=== PATIENT | female | born 1990 | race Hispanic/Latino ===

== ENCOUNTER 2021-09-18 09:35 | Inpatient (IN) | payer MEDICAID, OTHER, SELFPAY ==
[2021-09-18] MEDS ORDERED: Bicitra 30 ML UDCUP PO PRN (09:51)
[2021-09-18] MEDS ORDERED: Ondansetron PF 4 MG/2 ML Vial IVP PRN ×3 (09:51→15:39)
[2021-09-18] MEDS ORDERED: hydrALAZINE 20 MG/ML VIAL SLOW IVP PRN ×2 (09:51→15:39)
[2021-09-18] MEDS ORDERED: Famotidine/PF 20 mg/2ml Vial SLOW IVP PRN (09:51)
[2021-09-18] MEDS ORDERED: Promethazine HCl 25 MG/ML VIAL IM PRN ×3 (09:51→15:39)
[2021-09-18] MEDS ORDERED: ceFAZolin 2 GM/Dextrose 50 ML 2 GM in Premix Bag 1 BAG IVPB SCH (09:51)
[2021-09-18] MEDS ORDERED: Lactated Ringer's 1,000 ML IV SCH (09:51)
[2021-09-18 10:23] VITALS: BMI 31.2
[2021-09-18 11:24] LABS: Hemoglobin 12.1 g/dL (12.0-15.5); Mean Corpuscular HGB CONC 32.3 g/dL (32.0-36.0); Mean Corpuscular Hemoglobin 28.5 pg (27.0-33.0); Mean Corpuscular Volume 88.4 fl (81.6-98.3); Mean Platelet Volume 11.6 fl (7.4-10.4); Platelet Count 275 10x3/uL (150-450); RBC Distribution Width 14.5 % (11.5-14.5); Red Blood Cell (RBC) Count 4.24 10x6/uL (3.90-5.03); White Blood Cell (WBC) Count 7.7 10x3/uL (3.5-10.5)
[2021-09-18] MEDS ORDERED: ePHEDrine Sulfate 50 MG/10 ML VIAL ONE (11:38)
[2021-09-18] MEDS ORDERED: Morphine PF 10 MG/10 ML VIAL ONE (11:38)
[2021-09-18] MEDS ORDERED: Phenylephrine 40 MG/NS 250 ML 0 ML ONE (11:39)
[2021-09-18] MEDS ORDERED: Ketorolac Tromethamine 30 MG/ML VIAL ONE (11:39)
[2021-09-18] MEDS ORDERED: Oxytocin 10 UNITS/ML VIAL ONE (11:39)
[2021-09-18] MEDS ORDERED: Dexamethasone 4 mg/ml Vial ONE (11:39)
[2021-09-18] MEDS ORDERED: Ondansetron PF 4 MG/2 ML Vial ONE ×2 (11:39→12:30)
[2021-09-18] MEDS ORDERED: Phenylephrine 10 MG/ML VIAL ONE ×2 (11:40)
[2021-09-18 12:04] LABS: SARS-CoV-2 NAA Rapid Test Not Detected (NotDetected)
[2021-09-18 12:08] LABS: Hep B Surf Ag Non-Reactive S/CO (NonReactive); Syphilis Antibody Nonreactive (Nonreactive); Syphilis Antibody Index 0.03 S/CO (<1.00 Non-Reactive)
[2021-09-18 12:11] LABS: HBSAg Index 0.17 S/CO (0-0.99)
[2021-09-18] MEDS ORDERED: Midazolam HCl 2 mg/2 ml Vial ONE (12:39)
[2021-09-18] MEDS ORDERED: Promethazine HCl 25 MG SUPP PR PRN (13:13)
[2021-09-18] MEDS ORDERED: Naloxone HCl 0.4 mg/ml Vial IVP PRN ×2 (13:13)
[2021-09-18] MEDS ORDERED: Ketorolac Tromethamine 30 MG/ML VIAL IVP PRN (13:13)
[2021-09-18] MEDS ORDERED: diphenhydrAMINE 50 MG/ML VIAL IVP PRN (13:13)
[2021-09-18] MEDS ORDERED: Fentanyl 100 MCG/2 ML VIAL SLOW IVP PRN (13:13)
[2021-09-18] MEDS ORDERED: Naloxone HCl 0.4 mg/ml Vial IV PRN (13:13)
[2021-09-18] MEDS ORDERED: Hydrocerin (Eucerin) Cream 120 gm Jar TOP PRN (13:13)
[2021-09-18] MEDS ORDERED: Ondansetron HCl/PF 4 MG/2 ML Vial IVP PRN (13:13)
[2021-09-18] MEDS ORDERED: Meperidine HCl/PF 25 MG/ML VIAL SLOW IVP PRN (13:13)
[2021-09-18] MEDS ORDERED: Ketorolac Tromethamine 30 MG/ML VIAL IVP SCH ×2 (13:15→18:00)
[2021-09-18] MEDS ORDERED: Communication Order-Pharmacy FS SCH (13:15)
[2021-09-18] MEDS ORDERED: diphenhydrAMINE 25 MG CAP PO PRN (15:39)
[2021-09-18] MEDS ORDERED: Simethicone Chewable 80 MG TAB PO PRN (15:39)
[2021-09-18] MEDS ORDERED: Lanolin Ointment 7 GM TUBE TOP PRN (15:39)
[2021-09-18] MEDS ORDERED: Bisacodyl 10 MG SUPP PR PRN (15:39)
[2021-09-18] MEDS ORDERED: Boostrix 0.5 ML (Tdap) VIAL IM ONE (15:39)
[2021-09-18] MEDS ORDERED: NS w/ Oxytocin 30 units 500 ML IV SCH (15:39)
[2021-09-18] MEDS: Ferrous Sulfate 325 MG TAB PO SCH (19:19)
[2021-09-18] MEDS: Docusate 100 MG CAP PO SCH (19:21)
[2021-09-18] MEDS: Ketorolac Tromethamine 30 MG/ML VIAL IVP SCH (21:29)
[2021-09-19] MEDS ORDERED: Meperidine HCl/PF 25 MG/ML VIAL IM PRN (02:00)
[2021-09-19] MEDS ORDERED: HYDROcodone/Acetaminophen 5/325 mg Tablet PO PRN (04:00)
[2021-09-19 06:31] LABS: Hemoglobin 9.9 g/dL (12.0-15.5); Mean Corpuscular HGB CONC 32.8 g/dL (32.0-36.0); Mean Corpuscular Hemoglobin 28.9 pg (27.0-33.0); Platelet Count 257 10x3/uL (150-450); RBC Distribution Width 14.5 % (11.5-14.5); Red Blood Cell (RBC) Count 3.43 10x6/uL (3.90-5.03); White Blood Cell (WBC) Count 7.6 10x3/uL (3.5-10.5)
[2021-09-19] MEDS: Ketorolac Tromethamine 30 MG/ML VIAL IVP SCH ×2 (07:38→09:04)
[2021-09-19] MEDS: Ferrous Sulfate 325 MG TAB PO SCH ×2 (09:04→21:14)
[2021-09-19] MEDS: Docusate 100 MG CAP PO SCH ×2 (09:04→21:14)
[2021-09-19] MEDS: Prenatal Vitamin 1 TAB PO SCH (09:04)
[2021-09-19] MEDS: Ibuprofen 800 MG TAB PO SCH ×2 (13:17→21:14)
[2021-09-19] MEDS: HYDROcodone/Acetaminophen 5/325 mg Tablet PO PRN (17:49)
[2021-09-20] MEDS: HYDROcodone/Acetaminophen 5/325 mg Tablet PO PRN ×3 (03:29→20:06)
[2021-09-20] MEDS: Ibuprofen 800 MG TAB PO SCH ×3 (05:12→21:30)
[2021-09-20] MEDS: Docusate 100 MG CAP PO SCH ×2 (08:57→21:30)
[2021-09-20] MEDS: Prenatal Vitamin 1 TAB PO SCH (08:57)
[2021-09-20] MEDS: Ferrous Sulfate 325 MG TAB PO SCH ×2 (08:57→21:36)
[2021-09-21] MEDS: Ibuprofen 800 MG TAB PO SCH ×2 (05:33→14:53)
[2021-09-21 07:42] VITALS: BP 109/66; TEMP 98.8
[2021-09-21] MEDS: Prenatal Vitamin 1 TAB PO SCH (09:48)
[2021-09-21] MEDS: Docusate 100 MG CAP PO SCH (09:48)
[2021-09-21] MEDS: Ferrous Sulfate 325 MG TAB PO SCH (09:48)
[2021-09-21] MEDS: HYDROcodone/Acetaminophen 5/325 mg Tablet PO PRN (14:57)
== END 2021-09-21 16:45 | disposition home or self-care (01) | DRG 788 ==
LOC: CSHLD 09:35 → CSHPP 15:25
PROVIDERS: ADMIT Family Medicine; ATTEND Family Medicine
PROC: 10D00Z1 Extraction of Products of Conception, Low, Open Approach (ICD-10-PCS; principal; 2021-09-18)
DX: O34.211 Maternal care for low transverse scar from previous cesarean delivery (principal); Z3A.39 39 weeks gestation of pregnancy; Z37.0 Single live birth; Z20.822 Contact with and (suspected) exposure to COVID-19
CPT/HCPCS: 36415; 51702; 85027; 86780; 86850; 86900; 86901; 87340; 90715; J0690; J1100; J1200; J1885; J2250; J2274; J2370; J2405; J2590; S0028; U0002